=== PATIENT | female | born 1985 | race Caucasian/White ===

== ENCOUNTER 2019-09-25 12:47 | Outpatient (REF) | payer SELFPAY ==
[2019-09-25 13:42] LABS: Basophils % 0.4 %; Eosinophils # 0.1 10^3/uL (0.0-0.8); Eosinophils % 1.4 %; Hematocrit 44.8 % (37.0-47.0); Hemoglobin 14.5 g/dL (11.5-15.3); Lymphocytes # 2.9 10^3/uL (0.8-4.8); Lymphocytes % 29.8 %; Mean Corpuscular HGB Conc 32.4 g/dL (30.0-36.0); Mean Corpuscular Hemoglobin 30.5 pg (28.0-34.0); Mean Corpuscular Volume 94.1 fL (81-99); Mean Platelet Volume 10.1 fL (7.4-10.4); Monocytes # 0.6 10^3/uL (0.2-0.9); Monocytes % 6.2 %; Neutrophils # 6.1 10^3/uL (1.8-7.7); Neutrophils % 61.8 %; Nucleated Red Blood Cells % 0 %; Platelet Count 238 10^3/cmm (130-400); Red Blood Count 4.76 10^6/uL (4.1-5.3); Red Cell Distribution Width 12.3 % (12.1-15.1); White Blood Count 9.8 10^3/uL (4.0-10.0)
[2019-09-25 14:05] LABS: Estmated Average Glucose 97
[2019-09-25 14:15] LABS: Alanine Aminotransferase 17 U/L (0-33); Albumin Level 4.8 g/dL (3.5-5.2); Alkaline Phosphatase 60 IU/L (35-105); Anion Gap 17.9 (5-19); Aspartate Amino Transferase 20 U/L (0-32); Blood Urea Nitrogen 16 mg/dL (6-20); Calcium 10.5 mg/dL (8.5-10.5); Carbon Dioxide 25 mmol/L (22-29); Chloride 99 mmol/L (98-107); Chol HDL Ratio 2.56 mg/dL (0.0-4.40); Cholesterol 184 mg/dL (0-200); Globulin 3.8 g/dL (1.3-4.6); Glomerular Filtration Rate 82.1 mL/min (90-130); Glucose 107 mg/dL (74-109); HDL Cholesterol 72 mg/dL (60-100); LDL Cholesterol Calculated 90 mg/dL (50-129); LDL HDL Ratio 1.25 RATIO (0.00-3.22); Potassium 3.9 mmol/L (3.5-5.1); Sodium 138 mmol/L (136-145); Total Bilirubin 0.2 mg/dL (0.15-1.2); Total Protein 8.6 g/dL (6.6-8.7); Triglycerides 112 mg/dL (0-150)
== END 2019-09-25 12:48 | disposition home or self-care (01) ==
LOC: LAB 12:47
PROVIDERS: Visit Provider Dermatology
DX: Z01.89 Encounter for other specified special examinations (principal)
CPT/HCPCS: 80053; 80061; 83036; 85025

== ENCOUNTER 2019-10-06 08:43 | Emergency (ER) | payer MEDICAID, SELFPAY ==
[2019-10-06 08:48] VITALS: BP 106/68; PULSE 84; RESP 16; TEMP 36.8; O2SAT 97; BMI 29.1
--- NOTE | 2019-10-06 09:00 | ED_ITS ---
HPI - General Adult General: Chief complaint: General Medical Stated complaint: n/v and congested Time Seen by Provider: 10/06/19 08:54 History of Present Illness: HPI narrative: Patient is a patient of [facility]. Was diagnosed acute sinusitis here couple 3 weeks ago not placed on any medication. Patient said she is having more drainage sinus congestion sinus pressure now running a fever and body aches. Said she is thrown up some mucus last night. Does feel nauseated today. Onset (ago): day(s) Radiation: non-radiation Severity scale (1-10): 5 Quality: aching Relieving factors: none Associated symptoms: Reports fevers/chills and vomiting; Deny chest pain, dyspnea, headache(s) or rash Review of Systems Const: Denies: fever, chills or body aches Eyes: Denies: change in vision or blurry vision ENMT: Reports: nasal discharge and nasal congestion; Denies: throat pain Card: Denies: chest pain or shortness of breath on exertion Resp: Denies: shortness of breath, productive cough or non-productive cough GI: Reports: vomiting Musc: Denies: extremity pain Skin/Breast: Denies: rash Neuro: Denies: headache Psych: Denies: anxiety or depression Shawn/Lymph: Denies: easy bruising PFSH ED PFSH: Statuses (acute, chronic, etc) shown below reflect problem list status as previously entered and may not be historically accurate Social History Smoking and tobacco status: current every day smoker Female Reproductive History: Date of last menstrual period: 09/10/19 Physical Exam Const: COMMON NORMALS: no apparent distress, average body habitus and oriented x3 HENMT: COMMON NORMALS: normocephalic HEAD & SCALP: normal to inspection and normocephalic FACE & SINUS: normal facial exam and facial tenderness (Maxillary bilateral) Eye: COMMON NORMALS: conjunctivae normal GENERAL EYE: normal appearance of both eyes CONJUNCTIVA: Yes conjunctivae normal Neck/C-Spine: COMMON NORMALS: no JVD Chest: COMMONS NORMALS: inspection of chest normal Resp: COMMON NORMALS: normal respiratory effort and clear to auscultation bilaterally AUSCULTATION: clear to auscultation bilaterally Cardio: COMMON NORMALS: no JVD, regular rate and regular rhythm RATE: regular rate RHYTHM: regular rhythm GI: COMMON NORMALS: normal to inspection, nondistended, normoactive bowel soun ds Extremity: COMMON NORMALS: normal to inspection and full ROM Neuro: COMMON NORMALS: oriented x3 Course Vital Signs: Vital signs: Vital Signs Temperature 98.3 F 10/06/19 08:48 Pulse Rate 84 10/06/19 08:48 Respiratory Rate 16 10/06/19 08:48 Blood Pressure 106/68 10/06/19 08:48 Pulse Oximetry 97 10/06/19 08:48 Coding Level of Care Code ED Devulcanizer Head for Chg Fwd Exam Problem Focused
[2019-10-06] MEDS: ondansetron 4 MG Tablet PO (09:18)
[2019-10-06 09:22] VITALS: O2SAT 98
[2019-10-06 10:03] LABS: Influenza A by IFA Negative (Negative); Influenza B by IFA Positive (Negative)
[2019-10-06 10:29] VITALS: BP 132/88; PULSE 74; RESP 17; O2SAT 98
== END 2019-10-06 10:30 ==
PROVIDERS: Emergency Provider Nurse Practitioner Family
DX: R09.81 Nasal congestion (principal)
CPT/HCPCS: 87804; 99282; 99283; Q0162